=== PATIENT | male | born 1940 | race Caucasian/White ===

== ENCOUNTER → 2016-06-24 | Outpatient (CLI) | payer OTHER, MEDICARE ==
[~2016-06-24] MED LIST: ASPI81TA28 PO; ATV1 PO; BRIM0.2S OPB; GLC/500 PO; GLC500 PO; LISI-729 PO; LOVA40TA4 PO; RXC5 PO
[2016-06-24 13:56] LABS: ESTIMATED AVERAGE GLUCOSE 134 mg/dl; HA1C FLAG Normal (Normal)
[2016-06-24 14:07] LABS: ALT/SGPT 17 U/L (12-78); AST/SGOT 11 U/L (15-37); BLOOD UREA NITROGEN 23 mg/dl (7-18); BUN/CREATININE RATIO 15.4 (10-20); CALCIUM 8.9 mg/dl (8.5-10.1); CARBON DIOXIDE 28 mmol/L (21-32); CHLORIDE 104 mmol/L (98-107); GLUCOSE 106 mg/dl (70-99); POTASSIUM 4.2 mmol/L (3.5-5.1); SODIUM 138 mmol/L (136-145)
[2016-06-24 14:10] LABS: CHOLESTEROL 171 mg/dl (0-200); CHOLESTEROL/HDL RATIO 4.4; HDL CHOLESTEROL 39 mg/dl; LDL CHOLESTEROL CALCULATED 87 mg/dl; TRIGLYCERIDES 226 mg/dl (0-150); VERY LOW DENSITY LIPOPROT CALC 45 mg/dl
== END | disposition home or self-care (01) ==
LOC: C.LABMFLN 09:42
PROVIDERS: ATTEND Family Medicine
DX: E11.9 Type 2 diabetes mellitus without complications (principal); E78.2 Mixed hyperlipidemia; I10 Essential (primary) hypertension

== ENCOUNTER → 2016-08-19 | Day surgery (SDC) | payer OTHER, MEDICARE ==
[2016-08-15 11:47] VITALS: Ht 180.3 cm; Wt 77.3 kg
[~2016-08-19] VITALS: Ht 180.3 cm; Wt 77.3 kg
[~2016-08-19] MED LIST changes: -ATV1 PO; -GLC500 PO; +LIDOCAINE HCL 2% 2 ML VIAL (20MG/ML) ONE; +PHENYLEPHRINE 100MCG/ML 5ML SYR ONE; +PROPOFOL IV EMULSION 10 MG/ML 20 ML VIAL IV ONE; -RXC5 PO
--- NOTE | 2016-08-19 10:30 | Endo History and Physical ---
History & Physical Date of Service: August 19, 2016. Chief Complaint: Positive hemoccult test Referring Physician: Dr Jae Arevalo History of Present Illness 75 yo CM who presents for colonoscopy secondary to positive cologuard test. Past Medical History Diabetes, Glaucoma, High Cholesterol, Hypertension, NE Past Surgical History Hx Cardiac Surgery: No Hx Internal Defibrillator: No Hx Pacemaker: No Hx Abdominal Surgery: No Hx of Implantable Prosthesis: No Hx Post-Op Nausea and Vomiting: No Hx Cancer Surgery: No Hx Thoracic Surgery: No Hx Orthopedic: Yes (LUMBAR FUSION) Hx Urinary Tract Surgery: No Family History None Social History Smoking Status: Current Some Day Smoker Hx Substance Use: No Hx Alcohol Use: Yes (1 GLASS OF WINE WEEKLY) Allergies Coded Allergies: No Known Allergies (Verified , 08/19/16) Current Medications Reported Home Medications Medications Dose Route/Sig Max Daily Dose Days Date Category Glucophage (Metformin Hcl) 500 Mg Tab 500 Mg PO BID 08/15/16 Reported Combigan (Brimonidine Tartrate-Timolol M) 1 Haylie Haylie 1 Drop OPB BID 12/16/14 Reported Aspirin Ec (Aspirin) 81 Mg Tab 81 Mg PO QAM 12/16/14 Reported Mevacor (Lovastatin) 40 Mg Tab 40 Mg PO QAM 12/16/14 Reported Prinivil (Lisinopril) 5 Mg Tab 5 Mg PO QPM 05/23/10 Reported Vital Signs Weight (Kilograms): 77.27 Height (Feet): 5 Height (Inches): 11 Date Time Temp Pulse Resp B/P Pulse Ox O2 Delivery O2 Flow Rate FiO2 08/19/16 09:53 36.6 68 20 119/68 96 Room Air Physical Exam General Appearance: WD/WN, no apparent distress Respiratory/Chest: Auscultation: breath sounds normal Cardiovascular: Heart Auscultation: RRR Abdomen: Bowel Sounds: normal Inspection & Palpation: soft, non-distended, no tenderness, guarding & rebound Assessment and Plan Assessment: 75 yo CM who presents for colonoscopy secondary to positive cologuard test. Plan: Proceed with colonoscopy.
--- NOTE | 2016-08-19 11:09 | Discharge Instructions ---
Endoscopy Patient Instructions Date / Procedure(s) Performed August 19, 2016. Colonoscopy Allergy Information Coded Allergies: No Known Allergies (Verified , 08/19/16) Discharge Date / Findings August 19, 2016. Colon polyp Diverticulosis Internal hemorrhoids Medication Instructions Stopped Medication(s): Metformin ASA 81 mg OK to resume all medications today as prescribed Reported Home Medications Medications Dose Route/Sig Max Daily Dose Days Date Category Glucophage (Metformin Hcl) 500 Mg Tab 500 Mg PO BID 08/15/16 Reported Combigan (Brimonidine Tartrate-Timolol M) 1 Haylie Haylie 1 Drop OPB BID 12/16/14 Reported Aspirin Ec (Aspirin) 81 Mg Tab 81 Mg PO QAM 12/16/14 Reported Mevacor (Lovastatin) 40 Mg Tab 40 Mg PO QAM 12/16/14 Reported Prinivil (Lisinopril) 5 Mg Tab 5 Mg PO QPM 05/23/10 Reported Provider Instructions Activity Restrictions - No exercising or heavy lifting for 24 hours. - Do not drink alcohol the day of the procedure. - Do not drive a car or operate machinery until the day after the procedure. - Do not make any important decisions or sign important papers in 24 hours after the procedure. Following Day: - Return to full activity which may include returning to work/school. Diet Start your diet with liquids and light foods (jello, soup, juice, toast). Then eat your usual diet if not nauseated. Treatment For Common After Affects For mild abdominal pain, bloating, or excessive gas: - Rest - Eat lightly - Lie on right side Follow-Up Information Follow-up with Dr Jae Arevalo as scheduled Anesthesia Information What You Should Know You have had a procedure that required some medicine to reduce anxiety and discomfort. This treatment is called moderate sedation. After receiving the treatment, you may be sleepy, but you will be able to breathe on your own. The effects of the treatment may last for several hours. Follow these instructions along with Activity/Diet recommendations noted above: * Do NOT do anything where dizziness or clumsiness would be dangerous. * Rest quietly at home today, then you can be up and about tomorrow. * Have a responsible person stay with you the rest of today. * You may have had an I.V. today. If so, you may take the dressing off later today. Recommendations Call your doctor if: * Trouble breathing * Continuous vomiting for more than 24 hours * Temperature above 101 degrees * Severe abdominal pain or bloating * Pain not relieved by pain medicine ordered * There is increased drainage or redness from any incision * A large amount of rectal bleeding greater than 2-3 tablespoons. (If you had a polyp/s removed or have hemorrhoids, a small amount of blood - from the rectum is to be expected.) * You have any unanswered questions or concerns. IN THE EVENT OF A SERIOUS EMERGENCY, GO TO THE NEAREST EMERGENCY ROOM Your discharge instructions were prepared by provider Elias Hernandez. Patient Instructions Signature Page Randall García Patient (or Guardian) Signature/Date: I have read and understand the instructions given to me by my caregivers. Caregiver/RN/Doctor Signature/Date: The above-named patient and/or guardian has received patient instructions on this date. + Original Patient Signature Page (only) stays with chart. Please make copy for patient.
--- NOTE | 2016-08-19 11:20 | GI REPORT ---
Procedure Date: 08/19/2016 10:41 AM Procedure: Colonoscopy Indications: High risk colon cancer surveillance: Personal history of colonic polyps Medicines: Monitored Anesthesia Care Complications: No immediate complications. Estimated Blood Loss: Estimated blood loss: none. Procedure: Pre-Anesthesia Assessment: - Prior to the procedure, a History and Physical was performed, and patient medications and allergies were reviewed. The patient's tolerance of previous anesthesia was also reviewed. The risks and benefits of the procedure and the sedation options and risks were discussed with the patient. All questions were answered, and informed consent was obtained. Prior Anticoagulants: The patient has taken aspirin, last dose was 4 days prior to procedure. ASA Grade Assessment: II - A patient with mild systemic disease. After reviewing the risks and benefits, the patient was deemed in satisfactory condition to undergo the procedure. After I obtained informed consent, the scope was passed under direct vision. Throughout the procedure, the patient's blood pressure, pulse, and oxygen saturations were monitored continuously. The scope was introduced through the anus and advanced to the terminal ileum. The colonoscopy was performed without difficulty. The patient tolerated the procedure well. The quality of the bowel preparation was good. The terminal ileum, ileocecal valve, appendiceal orifice, and rectum were photographed. Findings: Four sessile polyps were found in the descending colon. The polyps were 5 to 10 mm in size. These polyps were removed with a hot snare. Resection and retrieval were complete. Multiple small-mouthed diverticula were found in the sigmoid colon. Non-bleeding internal hemorrhoids were found during retroflexion. The hemorrhoids were small. Impression: - Four 5 to 10 mm polyps in the descending colon, removed with a hot snare. Resected and retrieved. - Diverticulosis in the sigmoid colon. - Non-bleeding internal hemorrhoids. Recommendation: - Resume previous diet. - Continue present medications. - Repeat colonoscopy for surveillance based on pathology results. - Return to primary care physician as previously scheduled. Elias Hernandez, DO 08/19/2016 11:19:59 AM This report has been signed electronically. Note Initiated On: 08/19/2016 10:41 AM I attest to the content of the Intraoperative Record and orders documented therein, exceptions below
--- NOTE | 2016-08-19 11:23 | Anesthesiology Progress Note ---
Anesthesia Post Op Note Date & Time August 19, 2016 at 11:23 Vital Signs Pain Intensity: 0 Vital Signs Past 12 Hours Date Time Temp Pulse Resp B/P Pulse Ox O2 Delivery O2 Flow Rate FiO2 08/19/16 11:08 57 16 109/57 99 Room Air 08/19/16 09:53 36.6 68 20 119/68 96 Room Air Notes Mental Status: alert / awake / arousable, participated in evaluation Pt Amnestic to Procedure: Yes Nausea / Vomiting: adequately controlled Pain: adequately controlled Airway Patency, RR, SpO2: stable & adequate BP & HR: stable & adequate Hydration State: stable & adequate Anesthetic Complications: no major complications apparent
[2016-08-19 11:47] VITALS: BP 121/72; PULSE 64; O2SAT 97
== END | disposition home or self-care (01) ==
LOC: C.GI 08:39
PROVIDERS: ATTEND Internal Medicine
DX: Z12.11 Encounter for screening for malignant neoplasm of colon (principal); D12.4 Benign neoplasm of descending colon; E11.9 Type 2 diabetes mellitus without complications; H40.9 Unspecified glaucoma; K57.30 Diverticulosis of large intestine without perforation or abscess without bleeding; E78.00 Pure hypercholesterolemia, unspecified; I10 Essential (primary) hypertension; F17.200 Nicotine dependence, unspecified, uncomplicated; I25.2 Old myocardial infarction

== ENCOUNTER → 2016-10-09 | Outpatient (CLI) | payer OTHER, MEDICARE ==
[~2016-10-09] MED LIST changes: -LIDOCAINE HCL 2% 2 ML VIAL (20MG/ML) ONE; -PHENYLEPHRINE 100MCG/ML 5ML SYR ONE; -PROPOFOL IV EMULSION 10 MG/ML 20 ML VIAL IV ONE
[2016-10-09 13:20] LABS: BASO % 0.3 %; BASO ABS # 0.02 K/uL (0-0.2); EOS % 1.2 %; HEMATOCRIT 42.2 % (42-52); IG% 0.1 %; LYMPH % 20.2 %; LYMPH ABS # 1.49 K/uL (1.2-3.4); MEAN CELL VOLUME 89.8 fL (80-100); MONO % 5.8 %; NEUT % 72.4 %; PLATELET COUNT 220 K/uL (130-400); WHITE BLOOD COUNT 7.38 K/uL (4.8-10.8)
[2016-10-09 13:23] LABS: COMPLETE YES; MEAN CORPUSCULAR HGB CONC 33.4 g/dl (32-36)
[2016-10-09 13:43] LABS: ALB/GLOB RATIO 0.9 (0.9-2); ALKALINE PHOSPHATASE 66 U/L (45-117); ALT/SGPT 18 U/L (12-78); AST/SGOT 11 U/L (15-37); BLOOD UREA NITROGEN 25 mg/dl (7-18); BUN/CREATININE RATIO 18.1 (10-20); CALCIUM 9.3 mg/dl (8.5-10.1); CARBON DIOXIDE 27 mmol/L (21-32); CHLORIDE 106 mmol/L (98-107); GLUCOSE 126 mg/dl (70-99); POTASSIUM 4.5 mmol/L (3.5-5.1); SODIUM 139 mmol/L (136-145)
[2016-10-09 18:05] LABS: URINE APPEARANCE CLEAR (CLEAR); URINE BILIRUBIN NEG (NEG); URINE COLOR YELLOW; URINE NITRITE NEG (NEG); URINE SPECIFIC GRAVITY 1.025 (1.000-1.030); UROBILINOGEN NEG (NEG)
[2016-10-09 18:06] LABS: MANUAL MICROSCOPIC REQUIRED? NO; REVIEW REQ? NO
== END | disposition home or self-care (01) ==
LOC: C.LABMFLN 11:58
PROVIDERS: ATTEND Physician Assistant
DX: R42 Dizziness and giddiness (principal); I95.1 Orthostatic hypotension

== ENCOUNTER → 2017-01-09 | Outpatient (CLI) | payer OTHER, MEDICARE ==
[2017-01-09 13:54] LABS: ESTIMATED AVERAGE GLUCOSE 140 mg/dl; HA1C FLAG Normal (Normal)
[2017-01-09 13:58] LABS: ALT/SGPT 21 U/L (12-78); AST/SGOT 12 U/L (15-37); BLOOD UREA NITROGEN 25 mg/dl (7-18); BUN/CREATININE RATIO 17.9 (10-20); CALCIUM 8.8 mg/dl (8.5-10.1); CARBON DIOXIDE 26 mmol/L (21-32); CHLORIDE 105 mmol/L (98-107); GLUCOSE 107 mg/dl (70-99); POTASSIUM 4.6 mmol/L (3.5-5.1); SODIUM 138 mmol/L (136-145)
[2017-01-09 14:01] LABS: ALB/GLOB RATIO 0.9 (0.9-2); ALKALINE PHOSPHATASE 65 U/L (45-117); CHOLESTEROL 149 mg/dl (0-200); CHOLESTEROL/HDL RATIO 3.9; HDL CHOLESTEROL 38 mg/dl; LDL CHOLESTEROL CALCULATED 81 mg/dl; TRIGLYCERIDES 149 mg/dl (0-150); VERY LOW DENSITY LIPOPROT CALC 30 mg/dl
== END | disposition home or self-care (01) ==
LOC: C.LABMFLN 09:23
PROVIDERS: ATTEND Family Medicine
DX: E11.9 Type 2 diabetes mellitus without complications (principal); E78.2 Mixed hyperlipidemia; I25.10 Atherosclerotic heart disease of native coronary artery without angina pectoris; I10 Essential (primary) hypertension

== ENCOUNTER → 2017-07-18 | Outpatient (CLI) | payer OTHER, MEDICARE ==
[2017-07-18 13:33] LABS: HEMOGLOBIN A1C 6.3 % (4.5-5.6)
[2017-07-18 13:50] LABS: ALBUMIN 3.5 gm/dl (3.4-5.0); ALT/SGPT 25 U/L (12-78); BLOOD UREA NITROGEN 29 mg/dl (7-18); CALCIUM 9.1 mg/dl (8.5-10.1); CARBON DIOXIDE 27 mmol/L (21-32); CREATININE 1.66 mg/dl (0.60-1.40); GLUCOSE 121 mg/dl (70-99); POTASSIUM 4.8 mmol/L (3.5-5.1); SODIUM 134 mmol/L (136-145)
[2017-07-18 13:53] LABS: ALKALINE PHOSPHATASE 90 U/L (45-117); AST/SGOT 20 U/L (15-37); CHOLESTEROL 159 mg/dl (0-200); LDL CHOLESTEROL CALCULATED 92 mg/dl; TOTAL PROTEIN 7.5 gm/dl (6.4-8.2)
== END | disposition home or self-care (01) ==
LOC: C.LABMFLN 09:10
PROVIDERS: ATTEND Family Medicine
DX: E11.9 Type 2 diabetes mellitus without complications (principal); I10 Essential (primary) hypertension